=== PATIENT | female | born 1975 | race Two or more races ===

== ENCOUNTER 2024-03-28 12:03 | Emergency (ER) | payer OTHER ==
[~2024-03-28] VITALS: Ht 160 cm; Wt 123.2 kg
[2024-03-28 13:35] VITALS: BP 132/68; TEMP 98
[2024-03-28 13:46] VITALS: PULSE 72; RESP 18; O2SAT 97
[2024-03-28] MEDS: HYDROcodone-ACET 10/325MG TAB PO ONE (14:00)
[2024-03-28] MEDS: KETOROLAC TROMETH 60MG/2ML VIAL IM ONE (15:08)
== END 2024-03-28 15:24 | disposition home or self-care (01) ==
LOC: ER 12:03
DX: S16.1XXA Strain of muscle, fascia and tendon at neck level, initial encounter (principal); S80.01XA Contusion of right knee, initial encounter; S00.83XA Contusion of other part of head, initial encounter; Z88.0 Allergy status to penicillin; W18.39XA Other fall on same level, initial encounter; Y93.89 Activity, other specified; Y92.69 Other specified industrial and construction area as the place of occurrence of the external cause; Y99.8 Other external cause status
CPT/HCPCS: 70486; 72040; 73562; 96372; 99285; J1885